=== PATIENT | male | born 1975 | race Hispanic/Latino ===

== ENCOUNTER 2021-02-01 10:39 | Emergency (ER) | payer OTHER, SELFPAY ==
[2021-02-01] MEDS ORDERED: Boostrix 0.5 ML (Tdap) VIAL ONE (10:50)
== END 2021-02-01 11:35 | disposition home or self-care (01) ==
LOC: NAV ERS 10:39
DX: S91.332A Puncture wound without foreign body, left foot, initial encounter (principal); Z23 Encounter for immunization; W22.8XXA Striking against or struck by other objects, initial encounter
CPT/HCPCS: 90471; 90715